=== PATIENT | male | born 2000 | race Caucasian/White ===

== ENCOUNTER 2018-03-18 00:15 | Emergency (ER) | payer BC ==
--- NOTE | 2018-03-18 00:41 | ER Report ---
History and Physical Time Seen By MD: 00:32 Hx. of Stated Complaint: CAUGHT A BROKEN PIECE OF GLASS. LAC TO RT MIDDLE AND RING FINGER HPI/ROS CHIEF COMPLAINT: Finger lacerations HISTORY OF PRESENT ILLNESS: 17-year-old male presents ambulatory to the ER complaining of right hand lacerations to his long and ring finger. Patient caught a broken glass in his hand. He sustained a laceration to the midportion of the long finger surface extending to the ulnar aspect. There is a tiny laceration just distal to the PIP joint of the ring finger on the radial aspect. All distal tendon and nerve function appears intact. Allergies: Coded Allergies: No Known Drug Allergies (Unverified , 03/18/18) Home Meds No Active Prescriptions or Reported Meds Reviewed Nurses Notes: Yes Old Medical Records Reviewed: Yes Hx Substance Use Disorder: No Hx Alcohol Use: No Constitutional Vital Sign - Last 24 Hours 03/18/18 03/18/18 03/18/18 03/18/18 00:18 00:23 00:30 01:00 Temp 98.1 Pulse 81 ? Resp 16 B/P (MAP) 133/95 133/95 (108) 125/93 (104) ???/??? (1665) Pulse Ox 95 97 O2 Delivery Room Air Physical Exam General appearance: Alert no distress. Respiratory: Chest is non tender, lungs are clear to auscultation. Cardiac: Regular rate and rhythm Extremities: Examination of the right hand reveals a neurovascularly intact hand. There is a laceration over the palmar aspect of the long finger between the PIP and the DIP joint on the palmar aspect extending to the radial side. It appears to be approximately 8 mm long., There is a 4 mm laceration on the radial side of the ring finger just distal to the PIP joint. DIFFERENTIAL DIAGNOSIS: After history and physical exam differential diagnosis was considered for finger laceration, nerve laceration, tendon injury, foreign body Medical Decision Making ED Course/Re-evaluation ED Course Patient was admitted to an examination room. H&P was done. The differential diagnoses was considered. On clinical examination. Patient has a laceration across his right long finger. And a tiny laceration on the side of the ring fin anali. The laceration on the long finger was repaired as below. The ring finger laceration, did not really need repair. Patient's tetanus status is up-to-date. Wound care was discussed, suture removal in 12 days. Procedure: Laceration repair. Verbal consent was obtained from the patient. The 8 mm laceration on the palmar surface of the right long finger between the PIP and DIP was anesthetized in the usual fashion. The wound was scrubbed, draped and explored to its base with a gloved finger. There were no deep structures involved. No tendon injury was identified. The wound was repaired with 5-0 Prolene 2 sutures. The wound repair was simple. The procedure was performed by myself. Decision to Disposition Date: Mar 18, 2018 Decision to Disposition Time: 00:39 Depart Departure Latest Vital Signs Vital Signs Date Time Temp Pulse Resp B/P (MAP) Pulse Ox O2 Delivery O2 Flow Rate FiO2 03/18/18 01:00 ?/??? (1665) 03/18/18 00:30 97 03/18/18 00:18 98.1 16 Room Air Impression: Primary Impression: Finger laceration Condition: Improved Disposition: HOME OR SELF-CARE New Scripts No Active Prescriptions or Reported Meds Patient Instructions: Finger Laceration (ED) Additional Instructions: Perform daily wound care keep it covered with a Band-Aid and antibiotic ointment Watch for signs of infection Stitches will come out in 12 days Problem Qualifiers Primary Impression: Finger laceration Encounter type: initial encounter Finger: middle finger Damage to nail status: without damage Foreign body presence: without foreign body Laterality: right Qualified Codes: S61.212A - Laceration without foreign body of right middle finger without damage to nail, initial encounter SEYMOUR PULIDO DO Mar 18, 2018 00:41
== END 2018-03-18 01:30 | disposition home or self-care (01) ==
LOC: ER 01:21
DX: S61.212A Laceration without foreign body of right middle finger without damage to nail, initial encounter (principal); S61.214A Laceration without foreign body of right ring finger without damage to nail, initial encounter; W25.XXXA Contact with sharp glass, initial encounter
CPT/HCPCS: 99283

== ENCOUNTER → 2018-12-13 | Outpatient (CLI) | payer BC ==
[2018-12-13 14:18] LABS: PLATELET COUNT, AUTOMATED 249 K/uL (150-450)
[2018-12-13 14:37] LABS: LDL CHOLESTEROL 76 mg/dl
--- NOTE | 2018-12-13 14:38 | EKG ---
FACILITY: [facility] PATIENT NAME: LUIS EDUARDO SALAS : [id number] MR: [id number] V: [id number] EXAM DATE: ORDERING PHYSICIAN: WILFRIDO TORRES TECHNOLOGIST: MARIAM Jose Reason : CP Blood Pressure : / mmHG Vent. Rate : 049 BPM Atrial Rate : 049 BPM P-R Int : 176 ms QRS Dur : 106 ms QT Int : 428 ms P-R-T Axes : 068 081 062 degrees QTc Int : 386 ms Marked sinus bradycardia with sinus arrhythmia Incomplete RBBB Abnormal ECG No previous ECGs available Confirmed by Edwin Alvarez ([id number]) on 12/13/2018 4:15:37 PM Referred By: MELISSA Confirmed By:Edwin Rosa
== END ==
LOC: LAB 13:56
PROVIDERS: ATTEND Nurse Practitioner Family
DX: Z00.00 Encounter for general adult medical examination without abnormal findings (principal); R00.1 Bradycardia, unspecified; R07.89 Other chest pain; R53.83 Other fatigue; R94.31 Abnormal electrocardiogram [ECG] [EKG]
CPT/HCPCS: 36415; 82040; 82247; 82306; 82310; 82374; 82435; 82465; 82565; 82947; 83718; 84075; 84132; 84155; 84295; 84443; 84450; 84460; 84478; 84520; 85025; 93005

== ENCOUNTER → 2018-12-19 | Outpatient (CLI) | payer BC ==
--- NOTE | 2018-12-24 13:20 | RT HOLTER TEST ---
FACILITY: [facility] PATIENT NAME: LUIS EDUARDO SALAS : [id number] MR: [id number] V: [id number] EXAM DATE: ORDERING PHYSICIAN: ANMOL WETZEL TECHNOLOGIST: ADELINA Hook-up date: 2018-12-19 11:12:00 Duration: 24:00:00 Test Indications: MAXIMINO Medications: N/A 01082 QRS complexes 22 Ventricular ectopics which represent <1 % of total QRS comp. 135 Supraventricular ectopics which represent <1 % of total QRS comp. * Paced QRS complexes which represent % of total QRS comp. VENTRICULAR ECTOPY 22 Isolated 0 Bigeminal Cycles 0 Couplets 0 Runs 0 Beats in Runs * Beats LONGEST at * BPM at :: -- * Beats FASTEST at * BPM at :: -- SUPRAVENTRICULAR ECTOPY 47 Isolated 44 Couplets 0 Runs 0 Beats in Runs * Beats LONGEST at * BPM at :: -- * Beats FASTEST at * BPM at :: -- HEART RATES 27 MIN at 05:14:16 2018-12-20 53 AVG 122 MAX at 15:20:33 2018-12-19 LONGEST RR 2.832 secs at 04:10:53 2018-12-20 S-T LEVELS Channel 1 -12.800 mm MIN at 11:12:00 2018-12-19 -12.800 mm MAX at 11:12:00 2018-12-19 Channel 2 -12.800 mm MIN at 11:12:00 2018-12-19 -12.800 mm MAX at 11:12:00 2018-12-19 Channel 3 -12.800 mm MIN at 11:12:00 2018-12-19 -12.800 mm MAX at 11:12:00 2018-12-19 Sinus rhythym throughout study. Periods of significant bradycardia into the 30's several times throughout study. Positive Holter study, recommend referral to cardiology. Confirmed by Edwin Alvarez ([id number]) on 12/24/2018 1:16:28 PM Referred By: Overread By: Edwin Rosa
== END ==
LOC: RESP 01:49
PROVIDERS: ATTEND Nurse Practitioner Family
DX: R94.39 Abnormal result of other cardiovascular function study (principal)
CPT/HCPCS: 93225; 93226